=== PATIENT | male | born 1980 | race Caucasian/White ===

== ENCOUNTER → 2021-03-03 | Outpatient (CLI) | payer OTHER ==
--- NOTE | 2021-03-04 03:30 | KCIC ---
Testicular ultrasound dated 03/03/2021. No comparison available. CLINICAL INDICATION: Testicular swelling. FINDINGS: Right testicle measures 4.8 x 3.1 x 2.4 cm. Left testicle measures 4.1 x 3.3 x 2.8 cm. No focal testi cular mass. Normal color flow to both testicles. There are bilateral varicoceles, left greater than right. No significant hydrocele or scrotal wall th ickening. Epididymides are unremarkable. IMPRESSION: 1. Normal sonographic appearance of the testicles. 2. Small bilateral varicoceles. Electronically signed by: Nathaniel Mathew MD (03/04/2021 3:28 AM) [facility]
== END ==
LOC: KCIC US 15:13
PROVIDERS: ATTEND Family Medicine
DX: I86.1 Scrotal varices (principal)
CPT/HCPCS: 76870